=== PATIENT | male | born 1990 | race Two or more races ===

== ENCOUNTER 2021-11-07 07:51 | Day surgery (SDC) | payer OTHER ==
[~2021-11-07] VITALS: Ht 172.7 cm; Wt 88.5 kg
[2021-11-07 09:13] LABS: Basophils # (auto) 0 10 ^3/uL (0-0.2); Basophils % (auto) 0.9 % (0.0-2.0); Eosinophils # (auto) 0.1 10 ^3/uL (0-0.8); Eosinophils % (auto) 2.8 % (0.0-7.0); Hematocrit 47.3 % (41.0-53.0); Lymphocytes # (auto) 1.9 10 ^3/uL (0.4-5.4); Lymphocytes % (auto) 35.3 % (10.0-50.0); Mean Corpuscular Hemoglobin 31.5 pg (28.0-32.0); Mean Corpuscular Hgb Conc. 33.9 g/dL (32.0-36.0); Mean Corpuscular Volume 92.9 fL (80.0-100.0); Monocytes # (auto) 0.5 10 ^3/uL (0-1.3); Monocytes % (auto) 9.2 % (0.0-12.0); Neutrophils # (auto) 2.7 10 ^3/uL (1.6-8.6); Neutrophils % (auto) 51.8 % (37.0-80.0); Nucleated Red Blood Cells % 0.1 %; Red Blood Cells 5.09 10^6/uL (4.5-5.90); Red Cell Distribution Width 12.8 % (11.8-14.3); White Blood Cell 5.2 10^3/uL (4.4-10.8)
[2021-11-07 09:31] LABS: BUN/Creatinine Ratio 10.4; Potassium 4.4 mmol/L (3.5-5.1)
[2021-11-07 09:34] LABS: INR 1.06 (0.9-1.15); Partial Thromboplastin Time 26.2 sec (23.6-33.0)
[2021-11-07] MEDS ORDERED: fentaNYL CITRATE 100 MCG/2 ML VL ONE (10:26)
[2021-11-07] MEDS ORDERED: MIDAZOLAM HCL 2MG/2ML 2ml VIAL (1mg/ml) ONE (10:27)
[2021-11-07] MEDS ORDERED: ONDANSETRON HCL 4 MG/2 ML VIAL ONE (10:35)
[2021-11-07] MEDS ORDERED: PROPOFOL 10 MG/ML 20 ML IV ONE (10:35)
[2021-11-07] MEDS ORDERED: LIDOCAINE 2% (LOCAL ANESTH.) PF 5ml SDV ONE (10:35)
[2021-11-07] MEDS ORDERED: ONDANSETRON HCL 4 MG/2 ML VIAL IV PRN (11:00)
[2021-11-07 11:25] VITALS: BP 124/65
== END 2021-11-07 11:36 | disposition home or self-care (01) ==
LOC: GI 07:51
PROVIDERS: ATTEND Internal Medicine Gastroenterology
DX: Z12.11 Encounter for screening for malignant neoplasm of colon (principal); K64.8 Other hemorrhoids; K57.30 Diverticulosis of large intestine without perforation or abscess without bleeding; K63.89 Other specified diseases of intestine; K21.00 Gastro-esophageal reflux disease with esophagitis, without bleeding; K22.10 Ulcer of esophagus without bleeding; K44.9 Diaphragmatic hernia without obstruction or gangrene; K31.89 Other diseases of stomach and duodenum; K29.50 Unspecified chronic gastritis without bleeding; K29.80 Duodenitis without bleeding; J45.909 Unspecified asthma, uncomplicated; Z20.822 Contact with and (suspected) exposure to COVID-19
CPT/HCPCS: 36415; 43239; 45378; 80048; 85025; 85610; 85730; 88305; 88342; J2001; J2250; J2405; J2704; J3010; 99152; 99153